=== PATIENT | female | born 1965 | race African-American/Black ===

== ENCOUNTER 2016-11-03 14:51 | Emergency (ER) | payer OTHER ==
[~2016-11-03] VITALS: Ht 175.3 cm; Wt 65.0 kg
[2016-11-03] MEDS ORDERED: TETANUS, DIPHTHERIA, PERTUSSIS VAC/PF 0.5ML (>7YR OLD) IM ONE (15:15)
[2016-11-03 16:31] LABS: CLARITY URINE CLOUDY (CLEAR); COLOR URINE ORANGE (YELLOW); GLUCOSE URINE NEGATIVE (NEGATIVE); KETONES URINE NEGATIVE (NEGATIVE); LEUKOCYTE ESTERASE URINE 3+ (NEGATIVE); NITRITE URINE POSITIVE (NEGATIVE); OCCULT BLOOD URINE 2+ (NEGATIVE); PROTEIN URINE TRACE (NEGATIVE); SPECIFIC GRAVITY URINE 1.024 (1.005-1.030)
[2016-11-03 16:54] VITALS: BP 140/87
== END 2016-11-03 16:59 | disposition home or self-care (01) ==
LOC: ER 15:36
DX: R39.15 Urgency of urination (principal); F12.10 Cannabis abuse, uncomplicated; Z90.710 Acquired absence of both cervix and uterus
CPT/HCPCS: 81001; 87086; 90471; 90715; 99284

== ENCOUNTER 2017-07-10 04:54 | Emergency (ER) | payer MEDICAID, OTHER ==
[~2017-07-10] VITALS: Ht 175.3 cm; Wt 65.0 kg
[2017-07-10] MEDS ORDERED: CARBAMIDE PEROXIDE 6.5% OTIC SOLN 15ML EACH EAR ONE (08:30)
[2017-07-10 10:18] VITALS: BP 151/94
== END 2017-07-10 10:45 | disposition home or self-care (01) ==
LOC: ER 04:54
DX: H61.23 Impacted cerumen, bilateral (principal); F17.210 Nicotine dependence, cigarettes, uncomplicated
CPT/HCPCS: 69209; 99282; X7700

== ENCOUNTER 2018-11-26 08:38 | Emergency (ER) | payer MEDICAID ==
[~2018-11-26] VITALS: Ht 175.3 cm; Wt 63.0 kg
[2018-11-26 08:45] VITALS: BP 159/104
== END 2018-11-26 09:17 | disposition home or self-care (01) ==
LOC: ER 08:38
DX: S40.862A Insect bite (nonvenomous) of left upper arm, initial encounter (principal); I10 Essential (primary) hypertension; F12.10 Cannabis abuse, uncomplicated; Z90.710 Acquired absence of both cervix and uterus; Z89.029 Acquired absence of unspecified finger(s); W57.XXXA Bitten or stung by nonvenomous insect and other nonvenomous arthropods, initial encounter; Y93.89 Activity, other specified; Y92.018 Other place in single-family (private) house as the place of occurrence of the external cause
CPT/HCPCS: 99282

== ENCOUNTER 2020-01-16 08:14 | Emergency (ER) | payer MEDICAID ==
[~2020-01-16] VITALS: Ht 175.3 cm; Wt 68.0 kg
[2020-01-16 08:21] VITALS: BP 157/91
== END 2020-01-16 09:19 | disposition home or self-care (01) ==
LOC: ER 08:14
DX: H61.21 Impacted cerumen, right ear (principal); I10 Essential (primary) hypertension; Z89.9 Acquired absence of limb, unspecified; Z90.710 Acquired absence of both cervix and uterus
CPT/HCPCS: 99282

== ENCOUNTER 2021-09-03 07:50 | Emergency (ER) | payer MEDICAID ==
[~2021-09-03] VITALS: Ht 175.3 cm; Wt 65.0 kg
[2021-09-03] MEDS ORDERED: AMLODIPINE 10MG TABLET PO ONE (08:30)
[2021-09-03] MEDS ORDERED: IBUPROFEN 600MG TABLET PO NR (09:00)
[2021-09-03 09:07] VITALS: BP 186/135
== END 2021-09-03 09:09 | disposition home or self-care (01) ==
LOC: ER 07:50
DX: M79.645 Pain in left finger(s) (principal); F12.10 Cannabis abuse, uncomplicated; I10 Essential (primary) hypertension
CPT/HCPCS: 73130; 99283